=== PATIENT | male | born 1960 | race Two or more races ===

== ENCOUNTER 2017-01-30 13:13 | Inpatient (IN) | payer MEDICAID, OTHER ==
[~2017-01-30] VITALS: Ht 162.6 cm; Wt 72.6 kg
[2017-01-30] MEDS ORDERED: MORPHINE SULFATE 2 MG/ML CPJ (NOT FOR IM USE) IV ONE (14:30)
[2017-01-30] MEDS ORDERED: ONDANSETRON HCL 4MG/2ML VIAL IV ONE (14:30)
[2017-01-30] MEDS ORDERED: HYDRALAZINE 20MG/ML VIAL IV ONE (14:30)
[2017-01-30 14:34] LABS: BASOPHILS % 0.4 % (0.0-2.0); EOSINOPHILS % 0.2 % (0.0-5.0); HEMOGLOBIN. 10.6 g/dL (14.0-18.0); LYMPHOCYTES % 10.9 % (20.0-50.0); MEAN CORPUSCULAR HEMOGLOBIN 28.9 pg (28.0-32.0); MEAN CORPUSCULAR VOLUME 87.1 fL (80.0-94.0); MEAN PLATELET VOLUME 7.4 fl (7.4-10.4); MONOCYTES % 9.2 % (2.0-8.0); NEUTROPHILS % 79.3 % (40.0-76.0); PLATELET 137 x1000/uL (130-400); RED BLOOD CELL COUNT 3.68 mill/uL (4.7-6.1)
[2017-01-30 14:42] LABS: INR 1.1; PARTIAL THROMBOPLASTIN TIME 26.1 sec (23.4-31.0); PROTHROMBIN TIME 11.9 sec (9.4-11.6)
[2017-01-30 14:45] LABS: AMMONIA 48 uMol/L (<32)
[2017-01-30 14:52] LABS: CARBON DIOXIDE 29 mEq/L (21-32); CHLORIDE 101 mEq/L (98-107)
[2017-01-30] MEDS ORDERED: MORPHINE SULFATE 4 MG/ML CPJ (NOT FOR IM USE) IV ONE (15:00)
[2017-01-30] MEDS ORDERED: MAGNESIUM/ALUMINUM HYDROXIDE/SIMETHICONE 30ML UDC PO PRN (15:30)
[2017-01-30] MEDS ORDERED: IPRATROPIUM/ALBUTEROL 0.5-3(2.5)MG/3ML NEB INH PRN (15:30)
[2017-01-30] MEDS ORDERED: DOCUSATE SODIUM 100MG CAPSULE PO PRN (15:30)
[2017-01-30] MEDS ORDERED: ONDANSETRON HCL 4MG/2ML VIAL IV PRN (15:30)
[2017-01-30] MEDS ORDERED: ENOXAPARIN 40MG/0.4ML SYR SUBCUT SCH (15:30)
[2017-01-30] MEDS ORDERED: CLONIDINE 0.1MG TABLET PO PRN (15:30)
[2017-01-30] MEDS ORDERED: ACETAMINOPHEN 325MG TABLET PO PRN (15:30)
[2017-01-30 16:15] VITALS: BP 129/81
[2017-01-30 16:30] VITALS: BP 129/81
[2017-01-30 17:33] LABS: HEPATITIS B SURFACE ANTIGEN NEGATIVE
[2017-01-30 18:01] LABS: HEPATITIS B CORE AB IGM NEGATIVE
[2017-01-30 18:03] LABS: HEPATITIS A AB IGM NEGATIVE (NEGATIVE)
[2017-01-30 20:00] VITALS: BP 114/76
[2017-01-30] MEDS ORDERED: DEXTROSE 50% WATER 50ML SYRINGE IV PRN (23:30)
[2017-01-31] VITALS: BP 104/67
[2017-01-31 00:08] LABS: CREATINE KINASE 21 IU/L (39-308); CREATINE KINASE MB FRACTION < 0.5 ng/mL (0.5-3.6); TROPONIN I < 0.02 ng/mL (0.00-0.04)
[2017-01-31 04:00] VITALS: BP 102/66
[2017-01-31 05:37] LABS: BASOPHILS % 0.4 % (0.0-2.0); EOSINOPHILS % 0.5 % (0.0-5.0); HEMOGLOBIN. 10.9 g/dL (14.0-18.0); LYMPHOCYTES % 12.6 % (20.0-50.0); MEAN CORPUSCULAR HEMOGLOBIN 29.1 pg (28.0-32.0); MEAN CORPUSCULAR VOLUME 88.1 fL (80.0-94.0); MEAN PLATELET VOLUME 7.5 fl (7.4-10.4); MONOCYTES % 7.6 % (2.0-8.0); NEUTROPHILS % 78.9 % (40.0-76.0); PLATELET 140 x1000/uL (130-400); RED BLOOD CELL COUNT 3.74 mill/uL (4.7-6.1); RED CELL DISTRIBUTION WIDTH 16.2 % (11.6-14.6)
[2017-01-31 05:42] LABS: INR 1.1; PARTIAL THROMBOPLASTIN TIME 26.1 sec (23.4-31.0); PROTHROMBIN TIME 11.8 sec (9.4-11.6)
[2017-01-31] MEDS ORDERED: METO-293 PO (06:35)
[2017-01-31] MEDS ORDERED: FAMO20TA8 PO (06:35)
[2017-01-31] MEDS ORDERED: HYDR-4094 PO (06:35)
[2017-01-31] MEDS ORDERED: FURO20TA4 PO (06:35)
[2017-01-31] MEDS ORDERED: TRAM50TA3 PO (06:35)
[2017-01-31] MEDS: BLOOD SUGAR DIAGNOSTIC STRIP TEST SCH ×5 (07:37→22:16)
[2017-01-31] MEDS: INSULIN LISPRO 100 UNITS/ML SUBCUT SCH ×5 (07:50→22:16)
[2017-01-31 08:00] VITALS: BP 107/68
[2017-01-31 08:01] LABS: CREATINE KINASE 22 IU/L (39-308); CREATINE KINASE MB FRACTION < 0.5 ng/mL (0.5-3.6); TROPONIN I < 0.02 ng/mL (0.00-0.04)
[2017-01-31] MEDS ORDERED: DIATR MEGLU/DIATRIZOATE SOLN 30ML PO SCH (09:00)
[2017-01-31 10:45] LABS: CARBON DIOXIDE 28 mEq/L (21-32); CHLORIDE 101 mEq/L (98-107); HDL CHOLESTEROL 21 mg/dL (40-59); LDL CHOLESTEROL 122 mg/dL (5-100)
[2017-01-31] MEDS ORDERED: SODIUM CHLORIDE 0.9% 10ML VIAL ONE (11:29)
[2017-01-31] MEDS ORDERED: IOHEXOL-300 100 ML BOTTLE ONE (11:29)
[2017-01-31] MEDS ORDERED: SODIUM BICARBONATE 4.2% 5 MEQ/10 ML DISP.SYRIN IV ONE (11:43)
[2017-01-31] MEDS ORDERED: LIDOCAINE HCL 1% 20ML VIAL (Pyxis) INJ ONE (11:43)
[2017-01-31 12:00] VITALS: BP 119/69
[2017-01-31 16:00] VITALS: BP 114/74
[2017-01-31 20:00] VITALS: BP 111/67
[2017-01-31] MEDS: HYDROCODONE/ACETAMINOPHEN 10/325MG TABLET PO PRN (22:22)
[2017-02-01 06:39] LABS: BASOPHILS % 0.3 % (0.0-2.0); EOSINOPHILS % 0.7 % (0.0-5.0); HEMATOCRIT. 33.4 % (42.0-52.0); HEMOGLOBIN. 11.1 g/dL (14.0-18.0); LYMPHOCYTES % 16.6 % (20.0-50.0); MEAN CORPUSCULAR HEMOGLOBIN 29.2 pg (28.0-32.0); MEAN CORPUSCULAR VOLUME 87.9 fL (80.0-94.0); MEAN PLATELET VOLUME 7.7 fl (7.4-10.4); MONOCYTES % 9.8 % (2.0-8.0); NEUTROPHILS % 72.6 % (40.0-76.0); PLATELET 109 x1000/uL (130-400)
[2017-02-01] MEDS: BLOOD SUGAR DIAGNOSTIC STRIP TEST SCH ×4 (06:44→21:59)
[2017-02-01 07:02] LABS: CARBON DIOXIDE 30 mEq/L (21-32); CHLORIDE 101 mEq/L (98-107)
[2017-02-01 07:05] LABS: AMMONIA 46 uMol/L (<32)
[2017-02-01] MEDS: INSULIN LISPRO 100 UNITS/ML SUBCUT SCH ×4 (07:50→21:00)
[2017-02-01 08:00] VITALS: BP 116/71
[2017-02-01] MEDS ORDERED: HYDROCODONE/ACETAMINOPHEN 10/325MG TABLET PO SCH (09:00)
[2017-02-01 12:00] VITALS: BP 111/71
[2017-02-01] MEDS: HYDROCODONE/ACETAMINOPHEN 10/325MG TABLET PO PRN (14:17)
[2017-02-01 16:00] VITALS: BP 108/71
[2017-02-01 20:00] VITALS: BP 108/68
[2017-02-02] VITALS: BP 96/58
[2017-02-02] MEDS: HYDROCODONE/ACETAMINOPHEN 10/325MG TABLET PO PRN ×2 (00:01→23:39)
[2017-02-02 04:00] VITALS: BP 101/63
[2017-02-02] MEDS: BLOOD SUGAR DIAGNOSTIC STRIP TEST SCH ×2 (07:47→12:21)
[2017-02-02] MEDS: INSULIN LISPRO 100 UNITS/ML SUBCUT SCH ×2 (07:50→12:21)
[2017-02-02 08:00] VITALS: BP 105/64
[2017-02-02] MEDS: ENOXAPARIN 40MG/0.4ML SYR SUBCUT SCH (09:00)
[2017-02-02 12:00] VITALS: BP 99/62
[2017-02-02] MEDS: LACTULOSE 20G/30ML UDC PO SCH ×2 (14:36→21:46)
[2017-02-02 16:00] VITALS: BP 109/69
[2017-02-02 20:00] VITALS: BP 108/68
[2017-02-03] VITALS: BP 110/71
[2017-02-03 04:00] VITALS: BP 104/60
[2017-02-03] MEDS: LACTULOSE 20G/30ML UDC PO SCH ×4 (05:50→21:09)
[2017-02-03 08:00] VITALS: BP 111/73
[2017-02-03] MEDS: ENOXAPARIN 40MG/0.4ML SYR SUBCUT SCH (09:00)
[2017-02-03 09:44] LABS: BASOPHILS % 0.3 % (0.0-2.0); EOSINOPHILS % 0.3 % (0.0-5.0); HEMATOCRIT. 36.9 % (42.0-52.0); HEMOGLOBIN. 12.2 g/dL (14.0-18.0); LYMPHOCYTES % 8.9 % (20.0-50.0); MEAN CORPUSCULAR HEMOGLOBIN 29.2 pg (28.0-32.0); MEAN CORPUSCULAR VOLUME 87.9 fL (80.0-94.0); MONOCYTES % 7.5 % (2.0-8.0); PLATELET 122 x1000/uL (130-400); RED BLOOD CELL COUNT 4.19 mill/uL (4.7-6.1); RED CELL DISTRIBUTION WIDTH 16.2 % (11.6-14.6)
[2017-02-03 09:56] LABS: CARBON DIOXIDE 29 mEq/L (21-32); CHLORIDE 100 mEq/L (98-107)
[2017-02-03 09:57] LABS: AMMONIA 24 uMol/L (<32)
[2017-02-03] MEDS ORDERED: SODIUM POLYSTYRENE SULFONATE 15 G/60 ML BOT PO NR (11:00)
[2017-02-03 12:00] VITALS: BP 99/63
[2017-02-03 16:00] VITALS: BP 115/73
[2017-02-03 20:00] VITALS: BP 118/74
[2017-02-04] VITALS: BP 117/75
[2017-02-04 04:00] VITALS: BP 115/64
[2017-02-04] MEDS: LACTULOSE 20G/30ML UDC PO SCH ×3 (05:54→14:00)
[2017-02-04 06:44] LABS: BASOPHILS % 0.1 % (0.0-2.0); EOSINOPHILS % 0.3 % (0.0-5.0); HEMATOCRIT. 35.3 % (42.0-52.0); HEMOGLOBIN. 11.9 g/dL (14.0-18.0); LYMPHOCYTES % 12.6 % (20.0-50.0); MEAN CORPUSCULAR HEMOGLOBIN 29.5 pg (28.0-32.0); MEAN CORPUSCULAR VOLUME 87.6 fL (80.0-94.0); MEAN PLATELET VOLUME 8.3 fl (7.4-10.4); MONOCYTES % 9.4 % (2.0-8.0); NEUTROPHILS % 77.6 % (40.0-76.0); PLATELET 105 x1000/uL (130-400); RED BLOOD CELL COUNT 4.04 mill/uL (4.7-6.1); RED CELL DISTRIBUTION WIDTH 15.7 % (11.6-14.6)
[2017-02-04 06:51] LABS: AMMONIA 53 uMol/L (<32)
[2017-02-04 07:30] LABS: CARBON DIOXIDE 25 mEq/L (21-32); CHLORIDE 100 mEq/L (98-107)
[2017-02-04 08:00] VITALS: BP 112/75
[2017-02-04] MEDS: ENOXAPARIN 40MG/0.4ML SYR SUBCUT SCH (08:14)
[2017-02-04] MEDS: HYDROCODONE/ACETAMINOPHEN 10/325MG TABLET PO PRN (08:15)
[2017-02-04 12:18] LABS: INR 1.1; PARTIAL THROMBOPLASTIN TIME 26.5 sec (23.4-31.0); PROTHROMBIN TIME 11.5 sec (9.4-11.6)
[2017-02-04] MEDS ORDERED: HYDR-523 PO (13:22)
[2017-02-04 14:35] VITALS: BP 106/66
== END 2017-02-04 16:50 | disposition home or self-care (01) | DRG 264 ==
LOC: ER 14:01 → 6EST 14:33 → ENRESERV 14:58
PROVIDERS: ADMIT Internal Medicine; ATTEND Internal Medicine
PROC: 0W9G3ZX Drainage of Peritoneal Cavity, Percutaneous Approach, Diagnostic (ICD-10-PCS; principal; 2017-01-31)
PROC: 0FB03ZX Excision of Liver, Percutaneous Approach, Diagnostic (ICD-10-PCS; 2017-01-31)
DX: C22.0 Liver cell carcinoma (principal); E43 Unspecified severe protein-calorie malnutrition; R18.8 Other ascites; K76.6 Portal hypertension; E87.1 Hypo-osmolality and hyponatremia; R16.0 Hepatomegaly, not elsewhere classified; K74.60 Unspecified cirrhosis of liver; K72.10 Chronic hepatic failure without coma; E86.0 Dehydration; D64.9 Anemia, unspecified; J98.11 Atelectasis
CPT/HCPCS: 36415; 49083; 71010; 74178; 76700; 77012; 80048; 80053; 80061; 80076; 82105; 82140; 82248; 82378; 82550; 82553; 82962; 83690; 83735; 84132; 84443; 84484; 85025; 85610; 85730; 86301; 86705; 86709; 86803; 86850; 86900; 87070; 87205; 87340; 88108; 88307; 88312; 88313; 89050; 93005; 93970; 96374; 96375; 99285; A4216; J1650; J2270; J2405; J3490; J7040; Q9963; Q9967